=== PATIENT | female | born 1975 | race Caucasian/White ===

== ENCOUNTER 2020-07-12 08:43 | Outpatient (REF) | payer OTHER, SELFPAY | END 2020-07-12 08:44 | disposition home or self-care (01) | LOC: HO.SCI 08:43 | DX: Z13.89 Encounter for screening for other disorder (principal) ==

== ENCOUNTER 2020-07-22 16:37 | Outpatient (REF) | payer OTHER, SELFPAY ==
--- NOTE | ~2020-07-22 | MR_ITS ---
EXAMINATION: MR BRAIN WITHOUT AND WITH CONTRAST CLINICAL INFORMATION: Chronic fatigue with headache and vision changes. COMPARISON: None available. TECHNIQUE: Multiplanar, multisequence imaging of the brain was performed before and after the intravenous administration of 6 mL of Gadavist. Susceptibility signal artifact is seen arising from the oral cavity resulting in some degradation of the anterior intracranial and extracranial structures. FINDINGS: There is no acute infarction, mass, hemorrhage, or extra-axial collection. There is a cavum vellum interpositum, a normal variant. No abnormal or unexpected intracranial enhancement is seen. The ventricles, sulci, and basilar cisterns are normal in size and configuration. Small and punctate foci of T2/FLAIR hyperintensity are seen in the cerebral white matter which are nonspecific. The cerebellar tonsils are normally positioned above the foramen magnum. The flow voids of the major intracranial arteries appear intact. The bones and extracranial soft tissues are within normal limits. A small amount of fluid signal is seen within the mastoids. No gross orbital abnormality is seen. MR/MR head/brain wo/w con IMPRESSION: No acute intracranial abnormality is seen. Specifically there is no mass, acute infarct, or abnormal enhancement.
== END 2020-07-22 16:38 | disposition home or self-care (01) ==
LOC: HO.MRI 16:37
PROVIDERS: Visit Provider Physician Assistant
DX: R51.9 Headache, unspecified (principal)
CPT/HCPCS: 70553; A9585